=== PATIENT | female | born 1990 | race Caucasian/White ===

== ENCOUNTER 2016-09-21 19:05 | Outpatient (CLI) | payer OTHER ==
[~2016-09-21] VITALS: Ht 152.4 cm; Wt 110.9 kg
[2016-09-21 19:35] VITALS: BP 133/78; PULSE 98; RESP 18; Ht 152.4 cm; Wt 110.9 kg
[2016-09-21] MEDS ORDERED: PREN-93 PO (19:37)
[2016-09-21 20:33] LABS: ADD UMIC NO; UR ASCORBIC ACID 40 mg/dL (NEGATIVE); UR BILIRUBIN (Dip) NEGATIVE (NEGATIVE); UR BLOOD (Dip) NEGATIVE (NEGATIVE); UR CLARITY SLIGHTLY CLOUDY (CLEAR); UR COLOR YELLOW (YELLOW); UR GLUCOSE (Dip) NEGATIVE (NEGATIVE); UR KETONES (Dip) 1+ mg/dL (NEGATIVE); UR LEUKOCYTE ESTERASE (Dip) NEGATIVE Leu/ul (NEGATIVE); UR MUCUS FEW /HPF (NONE SEEN); UR NITRITE (Dip) NEGATIVE (NEGATIVE); UR RBC 1 /HPF (0-5); UR SPECIFIC GRAVITY (Dip) 1.023 (1.003-1.030); UR SQUAMOUS EPITHELIAL CELL FEW /HPF (FEW); UR TOTAL PROTEIN (Dip) NEGATIVE (NEGATIVE); UR UROBILINOGEN (Dip) 1+ mg/dL (NEGATIVE)
--- NOTE | 2016-09-21 22:08 | RADRPT ---
PROCEDURE: US OB biophysical profile. CLINICAL INDICATION: decreased movements, contractions TECHNIQUE: Multiple sonographic images of the pelvis were obtained. The images were reviewed on a PACS workstation. COMPARISON: No prior studies are available for comparison. FINDINGS: There is a single viable intrauterine gestation. Cardiac activity is present with 150 beats per min [place]. There is a vertex presentation. The placenta is posterior. There is no evidence of placental abruption. There is a normal amount of amniotic fluid with an SHAYLA = 15.8 cm. Biophysical profile: movement 2/2 tone 2/2. breathing 2/2 SHAYLA 2/2 Total 09/15 RPTAT: AA . IMPRESSION: Normal biophysical profile. . .Tao Latif MD, MD Date Time Electronically viewed and signed by .Tao Latif MD, MD on 09/21/2016 22:07 .S/
--- NOTE | 2016-09-21 23:54 | TRIAGE ---
OB Triage Datetime Report Generated by CPN: 09/21/2016 23:54 Datetime: 09/21/2016 23:00 Labor Evaluation Frequency: IRREGULAR Monitor Mode: External Duration (sec)2399: 60 Quality: Mild Pattern: Normal: <= 5 Contractions in 10 Minutes Resting Tone [place]: Relaxed Heart Rate FHR Baseline Rate: 135 Monitor Mode: External US FHR Baseline Changes: No Baseline Change Variability: Moderate 6-25 bpm Accelerations: 15X15 Decelerations: None Category: Category I Datetime: 09/21/2016 21:55 Comments: PT TURNED TO LT LATERAL POSITION FHT NOT TRACING Datetime: 09/21/2016 21:33 Labor Evaluation Frequency: IRREGULAR Monitor Mode: External Duration (sec)2399: 100 Quality: Mild Pattern: Normal: <= 5 Contractions in 10 Minutes Resting Tone [place]: Relaxed Heart Rate FHR Baseline Rate: 135 Monitor Mode: External US FHR Baseline Changes: No Baseline Change Variability: Moderate 6-25 bpm Accelerations: 15X15 Decelerations: None Category: Category I Datetime: 09/21/2016 21:00 Labor Evaluation Frequency: IRREGULAR Monitor Mode: External Duration (sec)2399: 30-120 Quality: Mild Pattern: Normal: <= 5 Contractions in 10 Minutes Resting Tone [place]: Relaxed Heart Rate FHR Baseline Rate: 135 Monitor Mode: External US FHR Baseline Changes: No Baseline Change Variability: Moderate 6-25 bpm Accelerations: 15X15 Decelerations: None Category: Category I Datetime: 09/21/2016 20:00 Labor Evaluation Frequency: IRREGULAR Monitor Mode: External Duration (sec)2399: 80 Quality: Mild Pattern: Normal: <= 5 Contractions in 10 Minutes Resting Tone [place]: Relaxed Heart Rate FHR Baseline Rate: 145 Monitor Mode: External US FHR Baseline Changes: No Baseline Change Variability: Moderate 6-25 bpm Accelerations: 15X15 Decelerations: None Category: Category I Datetime: 09/21/2016 19:43 Vaginal Exam Dilatation (cms): 0.0 Effacement (%): 0 Station: -3 Exam By: A CHATA RN Datetime: 09/21/2016 19:25 Stage of : OB Triage Time of Arrival: 09/21/2016 18:54 EGA: 37.3 Arrived By: Wheelchair Arrived From: Home Chief Complaint: ADOMINAL PAIN VAGINAL PRESSURE Movement: Present Time Contractions Began: 09/21/2016 09:00 Rupture of Membranes: Denies Vaginal Bleeding: None Vaginal Discharge: Denies Recent Sexual Intercouse: Denies Abdominal Trauma: Not Applicable Patient Complaints: None Time Provider Notified: 09/21/2016 20:40 Provider Notified: DR ADAM Initial Plan: CALL ASHWIN MCDOWELL Maternal Assessment Level of Consciousness: Fully Conscious DTR's/Clonus: DTRs 2+; No Clonus Headache: Denies Blurred Vision: No Respiratory Effort: Unlabored; Regular Rhythm; Equal Expansion Breath Sounds, Left: Clear and Equal Breath Sounds, Right: Clear and Equal Nausea/Vomiting: Denies RUQ Epigastric Pain: Denies Lower Extremities Edema: None Degree: None Upper Extremities Edema: None Degree: None Facial Edema: None Temperature Route: Oral Fall Risk Assessment History of Falling: (0) No Secondary Diagnosis: (0) No Ambulatory Aid: (0) Bedrest/Nurse Assist IV Therapy: (0) No Gait: (0) Normal/Bedrest/Immobile Mental Status: (0) Oriented to Own Ability Fall Score: 0 Fall Risk Score Definition: No Risk: No action required Monitor Mode: External Monitor Mode: External US Pain Assessment Pain Scale: 7 Pain Presence: Intermittent Pain Type: Pressure Pain Location: Abdomen; Back Datetime: 09/21/2016 19:12 Comments: LOSS OF CONTACT
--- NOTE | 2016-09-22 04:52 | PN ---
Triage Information Date/Time Reason for visit: pelvic pressure, occasional ucs Weeks of Gestation 37 3/7 weeks /Para Hypertention: none Objective Vital Signs Date Time Temp Pulse Resp B/P Pulse Ox O2 Delivery O2 Flow Rate FiO2 09/21/16 19:35 98.2 98 18 133/78 Room Air Heart Rate: 140's Contractions: >10 Minutes Apart Results/Medications Results 24 hrs Laboratory Tests Test 09/21/16 20:05 Urine Color YELLOW Urine Clarity SLIGHTLY CLOUDY A Urine pH 5.0 Urine Specific [place] 1.023 Urine Ketones 1+ H Urine Nitrite NEGATIVE Urine Bilirubin NEGATIVE Urine Urobilinogen 1+ H Urine Leukocyte Esterase NEGATIVE Urine Microscopic RBC 1 Urine Microscopic WBC 1 Urine Squamous Epithelial Cells FEW Urine Mucus FEW A Urine Hemoglobin NEGATIVE Urine Glucose NEGATIVE Urine Total Protein NEGATIVE Assessment/Plan - FHR: No sign of metabolic acidosis- Category I - Continuous EFM, toco - Contractions: Occasional - Reactive NST. USperformed with nml SHAYLA - Symptoms and sign of labor, preeclampsia, kick count discussed with patient, she voiced understanding. All of her questions answered. - Patient was discharged home in stable condition with the appropriate discharge instructions provided. I would like patient to have close follow-up with her primary physician or outpatient clinic in 1-2 days or return to the ER for worsening symptoms or any other urgent concerns. ALBA ADAM Sep 22, 2016 04:52
== END 2016-09-21 23:10 | disposition home or self-care (01) ==
LOC: OBT 19:05 → L-D 19:05 → OBT 23:10
PROVIDERS: ATTEND Obstetrics & Gynecology
DX: O62.9 Abnormality of forces of labor, unspecified (principal); Z3A.37 37 weeks gestation of pregnancy; O26.893 Other specified pregnancy related conditions, third trimester; Z3A.34 34 weeks gestation of pregnancy; R10.2 Pelvic and perineal pain
CPT/HCPCS: 76818; 81001; 87086; Z7500; 81003; G0463

== ENCOUNTER 2016-10-02 09:48 | Inpatient (IN) | payer OTHER ==
[~2016-10-02] VITALS: Ht 152.4 cm; Wt 108.6 kg
[~2016-10-02 09:48] MED LIST: EPHEDrine SULFATE 50 MG/5 ML SYG ONE; PREN-93 PO
[2016-10-02 10:06] VITALS: Ht 152.4 cm; Wt 108.6 kg
[2016-10-02] MEDS ORDERED: METHYLERGONOVINE 0.2 MG INJ IM PRN ×2 (10:30→17:30)
[2016-10-02] MEDS ORDERED: CEFAZOLIN 2 GM/50 ML (PMX) 50 ML IV SCH (10:30)
[2016-10-02] MEDS ORDERED: CARBOPROST 250 MCG INJ IM PRN ×2 (10:30→17:30)
[2016-10-02] MEDS ORDERED: OXYTOCIN 30 UNITS/LR 500 ML IV PRN ×2 (10:30→17:30)
[2016-10-02] MEDS ORDERED: MISOPROSTOL 200 MCG TAB PR PRN ×2 (10:30→17:30)
[2016-10-02 10:43] LABS: ABNORMAL IP MESSAGE 1; BASOPHILS % 0.3 % (0.0-2.0); EOSINOPHILS # 0.1 10^3/ul (0.0-0.5); EOSINOPHILS % 0.8 % (0.0-7.0); HEMATOCRIT 34.7 % (37.0-47.0); LYMPHOCYTES # 1.8 10^3/ul (0.8-2.9); LYMPHOCYTES % 22.4 % (15.0-51.0); MEAN CORPUSCULAR HEMOGLOBIN 22.5 pg (29.0-33.0); MEAN CORPUSCULAR HGB CONC 31.7 g/dl (32.0-37.0); MONOCYTE # 0.4 10^3/ul (0.3-0.9); MONOCYTES % 4.7 % (0.0-11.0); NEUTROPHILS % 71.5 % (39.0-77.0); PLATELET COUNT 177 10^3/UL (140-415); RED BLOOD COUNT 4.89 10^6/ul (4.20-5.40); RED CELL DISTRIBUTION WIDTH 16.9 % (11.5-14.5); WHITE BLOOD COUNT 7.8 10^3/ul (4.8-10.8)
[2016-10-02] MEDS: LACTATED RINGER'S 1,000 ML IV SCH ×2 (10:44→18:01)
[2016-10-02 10:48] LABS: POSITIVE DIFF @See below
[2016-10-02 10:49] LABS: INR 0.93; PROTIME 12.5 Sec (12.2-14.2)
[2016-10-02] MEDS ORDERED: CITRIC ACID/NA CITRATE 30 ML CUP PO ONE (12:00)
[2016-10-02] MEDS ORDERED: morphine SULFATE/PF (10 MG/10 ML) INJ ONE (12:05)
[2016-10-02] MEDS ORDERED: ONDANSETRON 4 MG INJ ONE (12:05)
[2016-10-02] MEDS ORDERED: KETOROLAC 30 MG INJ ONE (12:05)
[2016-10-02] MEDS ORDERED: METOCLOPRAMIDE 10 MG INJ ONE (12:05)
--- NOTE | 2016-10-02 13:11 | HP ---
Date/Time of Note Date/Time of Note DATE: 10/02/16 TIME: 13:02 OB - History Hx of Present Free Text/Dictation 25 years old female T3 PT 0 SAB 1 IAB 0 L3 Admitted to [facility] at 39 weeks gestation with a history of 3 previous section undergoing repeat for the fourth time patient has been under the care of [facility] her was not complicated with gestational diabetes -induced hypertension or any other serious surgical or medical condition [employer] history [place] at age 10 history of total of 5 one a spontaneous and 3 previous section and also gallbladder surgery 2013 Allergies denies allergy to any known medication Social habits denies a smoking or drinking or using illicit drug Review of system within normal Physical examination 5 feet 244 pounds weight gain during the 20 pounds blood pressure 132/73 pulse 74 respiration 18 and temperature 98 Head ears nose and throat negative Neck supple no thyromegaly Lungs clear to P&A Heart normal sinus rhythm no murmur Abdomen fundal height 37 cm from symphysis pubis heart rate category 1 Pelvic examination deferred Extremities no edema no varicosities Impression intrauterine at 39 weeks gestation, 3 previous , undergoing a repeat for the fourth time patient is aware of the complication of the surgery including bowel bladder injury infection hemorrhage and hematoma also complication from the anesthesia old this issues discussed with the patient or question answered is willing to go ahead with the procedure Chief Complaint: 39 weeks history of 3 previous sick Estimated Due Date: Oct 09, 2016 : 5 Para: 3 Spontaneous : 1 Care: Good Care Ultrasounds: Normal mid trimester US Obstetrical Complications: None Medical Complications: None Past Family/Social History * Past Medical, Surgical, Family and Obstetric Histories reviewed from chart. Rubella: immune RPR/VDRL: Negative GBS Status: Negative HBsAG: Negative OB Admission Exam Physical Exam HEENT: WNL Heart: Rhythm Normal Lungs: Clear, Equal Abdomen: WNL Extremities: Normal Cervical Dilatation: None Heart Rate: 120's Accelerations: Accelerations Present Decelerations: No Decelerations Varibility: Moderate Intensity: Mild Last 72 hours Lab Results CBC & BMP 10/02/16 10:15 MAN CUEVAS MD Oct 02, 2016 13:11
[2016-10-02] MEDS ORDERED: EPINEPHrine 0.1 MG/ML SYG ONE (13:14)
[2016-10-02] MEDS ORDERED: OXYTOCIN 30 UNITS/LR 500 ML IV ONE (13:57)
[2016-10-02] MEDS ORDERED: NALOXONE (0.4 MG/ML) INJ IV PRN (14:30)
[2016-10-02] MEDS ORDERED: ONDANSETRON 4 MG INJ IV PRN ×2 (14:30)
[2016-10-02] MEDS ORDERED: KETOROLAC 30 MG INJ IV PRN (14:30)
[2016-10-02] MEDS ORDERED: METOCLOPRAMIDE 10 MG INJ IV PRN (14:30)
[2016-10-02] MEDS ORDERED: DIPHENHYDRAMINE 50 MG INJ IV PRN ×2 (14:30)
[2016-10-02] MEDS ORDERED: HYDROmorphONE (0.2 MG/ML) 10ML SYG IV PRN ×3 (14:30)
[2016-10-02] MEDS ORDERED: HYDROmorphONE 1 MG/ML SYG IV PRN ×3 (14:30)
[2016-10-02] MEDS ORDERED: MEPERIDINE 25 MG INJ IV PRN (14:30)
--- NOTE | 2016-10-02 14:41 | OPR ---
Operative Report Planned Procedure Free Text/Dictation 25 years history of 3 previous section 39 weeks admitted for repeat for the fourth time complication of the surgery including but not limited to bowel bladder injury infection hemorrhage wound hematoma wound infection especially with a history of 3 previous possibility of blood transfusion has been discussed with the patient and explained all her questions answered Procedure date Oct 02, 2016 Procedure(s) Repeat section extensive adhesio lysis Performed by: MAN CUEVAS MD Assisting provider: IVORY GAMBOA Anesthesiologist: GEORGETTE MARROQUIN MD Pre-procedure diagnosis 39 weeks history of 3 previous section admitted for repeat C- section Anesthesia Type: spinal Procedure Description Under satisfactory spinal [] anesthesia, the patient was prepped and draped and placed in a supine position, tilted to the left. Pfannenstiel incision was made , carried through the subcutaneous tissue. Bleeders brought under control with electrocautery. Fascia incised to the length of the incision. Rectus muscles from the fascia, divided midline. Peritoneum exposed, entered through a transverse incision upon entry to the abdominal cavity it was noted the anterior uterine wall is dense adhesions to the anterior abdominal wall required extensive dissection to separate the uterus from the anterior abdominal wall and have access to lower segment of the uterus. Exploration of abdomen revealed gravid uterus at term no axis to the ovaries and fallopian tube , . Bladder flap was developed. Transverse incision was made in the lower segment of the uterus which was extremely thinned out. Amniotic sac ruptured. [ Clear] amniotic fluid noted. Light baby girl was delivered from unengaged bed [ ] Nasal oropharyngeal suction was performed. baby handed to the team for immediate attention. Patient received 20 units of Pitocin through the IV infusion placenta was delivered manually intact. Uterine cavity cleaned with wet sponge and drainage established. Uterus closed in 2 layers using [Monocryl # 1] in continuous fashion, lower segment of the uterus and uterine incision line was covered with Surgicel and Intercede Peritoneal cavity irrigated with warm saline. Sponge, needle and instrument count reported to be correct. Abdominal peritoneum closed with [2-0 chromic catgut] continuously. Rectus muscle approximated with 2-0 chromic catgut Fascia closed with #1 PDS subcutaneous tissue approximated with few interrupted 2-0 chromic catgut skin closed with N sorb. Estimated blood loss [6-700 cc]. Urine bag contained [200]mL of clear urine patient tolerated procedure well transferred to recovery room in good condition Post-Procedure Findings: Live Baby girl 9 and 9 Specimen removed: No Complications: None Pt Condition post procedure: stable Physician Certification I, the undersigned physician, hereby certify that I have discussed the procedure described in this consent form with this patient (or the patient's legal solar sales representative and assessor), including: * The risk and benefits of the procedure; * Any adverse reactions that may reasonably be expected to occur; * Any alternative efficacious methods of treatment which may be medically viable ; * The potential problems that may occur during recuperation; * Potential for blood transfusion and associated risks/benefits; and * Any research or economic interest I may have regarding this treatment. I further certify that the patient/legally responsible person was encouraged to ask question and that all questions were answered. MAN CUEVAS MD Oct 02, 2016 14:38
[2016-10-02] MEDS: OXYTOCIN 30 UNITS/LR 500 ML IV SCH ×4 (15:51→21:18)
[2016-10-02 17:19] VITALS: BP 113/74; PULSE 62; RESP 20
[2016-10-02] MEDS ORDERED: OXYCODONE/ACETAMINOPHEN (5/325) TAB PO PRN (17:30)
[2016-10-02] MEDS ORDERED: LANOLIN 7 GM TUBE TOP PRN (17:30)
[2016-10-02] MEDS ORDERED: HYDROCODONE/APAP (5/325) TAB PO PRN ×2 (17:30)
[2016-10-02] MEDS: SENNA/DOCUSATE NA (8.6MG/50MG) TAB PO SCH (21:00)
[2016-10-02] MEDS ORDERED: CEFAZOLIN 1 GM/50 ML (PMX) 50 ML IVPB SCH (21:00)
[2016-10-03] VITALS: BP 108/71; PULSE 73; RESP 18
[2016-10-03] MEDS: OXYTOCIN 30 UNITS/LR 500 ML IV SCH (01:09)
[2016-10-03] MEDS: LACTATED RINGER'S 1,000 ML IV SCH ×2 (02:01→09:17)
[2016-10-03 04:00] VITALS: BP 92/56; PULSE 84; RESP 16
[2016-10-03] MEDS: IBUPROFEN 600 MG TAB PO SCH ×3 (06:00→17:48)
[2016-10-03 07:29] LABS: ABNORMAL IP MESSAGE 1; BASOPHILS % 0.2 % (0.0-2.0); EOSINOPHILS % 0.1 % (0.0-7.0); HEMATOCRIT 28.5 % (37.0-47.0); HEMOGLOBIN 8.7 g/dl (12.0-16.0); LYMPHOCYTES # 1.5 10^3/ul (0.8-2.9); LYMPHOCYTES % 17.2 % (15.0-51.0); MEAN CORPUSCULAR HGB CONC 30.5 g/dl (32.0-37.0); MEAN CORPUSCULAR VOLUME 72.2 fl (82.0-101.0); MEAN PLATELET VOLUME 12.9 fl (7.4-10.4); MONOCYTE # 0.5 10^3/ul (0.3-0.9); MONOCYTES % 5.2 % (0.0-11.0); NEUTROPHILS % 77.2 % (39.0-77.0); PLATELET COUNT 143 10^3/UL (140-415); RED BLOOD COUNT 3.95 10^6/ul (4.20-5.40); RED CELL DISTRIBUTION WIDTH 17.1 % (11.5-14.5); WHITE BLOOD COUNT 8.9 10^3/ul (4.8-10.8)
[2016-10-03 08:22] LABS: POSITIVE DIFF @See below
[2016-10-03 08:40] VITALS: BP 101/57; PULSE 77; RESP 20
[2016-10-03] MEDS: SENNA/DOCUSATE NA (8.6MG/50MG) TAB PO SCH ×2 (09:17→21:03)
--- NOTE | 2016-10-03 11:45 | PN ---
Date/Time of Note Date/Time of Note DATE: 10/03/16 TIME: 11:41 OB Subjective Subjective Subjective p0st c section day 1 afebrile vss abdomen soft bs present lochia nl ext normal ambulation encouraged Laboratory Tests Test 10/03/16 06:05 White Blood Count 8.910^3/ul Red Blood Count 3.9510^6/ul Hemoglobin 8.7g/dl Hematocrit 28.5% Mean Corpuscular Volume 72.2fl Mean Corpuscular Hemoglobin 22.0pg Mean Corpuscular Hemoglobin Concent 30.5g/dl Red Cell Distribution Width 17.1% Platelet Count 89479^3/UL Mean Platelet Volume 12.9fl Neutrophils % 77.2% Lymphocytes % 17.2% Monocytes % 5.2% Eosinophils % 0.1% Basophils % 0.2% Nucleated Red Blood Cells % 0.0/100WBC Neutrophils # (Manual) 6.910^3/ul Lymphocytes # 1.510^3/ul Monocytes # 0.510^3/ul Eosinophils # 0.010^3/ul Basophils # 0.010^3/ul Nucleated Red Blood Cells # 0.010^3/ul Current Medications Medications (Trade) Dose Ordered Sig/Neris Route PRN Reason Start Time Stop Time Status Last Admin Dose Admin Lactated Ringer's 1,000 ml @ 125 mls/hr Q8H IV 10/02/16 10:01 10/03/16 09:17 Cefazolin Sodium/ Dextrose 50 ml @ 100 mls/hr ONCE IV 10/02/16 10:30 10/02/16 17:11 DC Oxytocin/Lactated Ringer's 500 ml @ 125 mls/hr ONCE IV 10/02/16 10:30 10/02/16 17:09 Oxytocin/Lactated Ringer's 500 ml @ 0 mls/hr ONCE PRN IV For Hemorrhage Management 10/02/16 10:30 10/02/16 17:11 DC Methylergonovine Maleate (Methergine) 0.2 mg ONCE PRN IM VAGINAL BLEEDING 10/02/16 10:30 10/02/16 17:11 DC Carboprost Tromethamine (Hemabate) 250 mcg ONCE PRN IM VAGINAL BLEEDING 10/02/16 10:30 10/02/16 17:11 DC Misoprostol (Cytotec) 1,000 mcg ONCE PRN MD VAGINAL BLEEDING 8/25/17 10:30 10/02/16 17:11 DC Citric Acid/ Sodium Citrate (Bicitra) 30 ml PRE-OP ONCE PO 10/02/16 12:00 10/02/16 12:01 DC 10/02/16 12:41 Morphine Sulfate (Duramorph) 10 mg STK-MED ONCE .ROUTE 10/02/16 12:05 10/02/16 12:06 DC Ondansetron HCl (Zofran Inj) 4 mg STK-MED ONCE .ROUTE 10/02/16 12:05 10/02/16 12:06 DC Metoclopramide HCl (Reglan) 10 mg STK-MED ONCE .ROUTE 10/02/16 12:05 10/02/16 12:06 DC Ketorolac Tromethamine (Toradol) 30 mg STK-MED ONCE .ROUTE 10/02/16 12:05 10/02/16 12:06 DC Epinephrine 1 mg 1 mg STK-MED ONCE .ROUTE 10/02/16 13:14 10/02/16 13:15 DC Oxytocin/Lactated Ringer's 500 ml @ ud STK-MED ONCE IV 10/02/16 13:57 10/02/16 13:58 DC Hydromorphone HCl (Dilaudid (Rec)) 0.2 mg PACU ORDER PRN IV MILD PAIN LEVEL 1-3 10/02/16 14:30 10/03/16 03:45 DC Hydromorphone HCl (Dilaudid (Rec)) 0.4 mg PACU ORDER PRN IV MODERATE PAIN LEVEL 4-6 10/02/16 14:30 10/03/16 03:45 DC Hydromorphone HCl (Dilaudid (Rec)) 0.6 mg PACU ORDER PRN IV SEVERE PAIN LEVEL 7-10 10/02/16 14:30 10/03/16 03:45 DC Ondansetron HCl (Zofran Inj) 4 mg PACU ORDER PRN IV NAUSEA AND/OR VOMITING 10/02/16 14:30 10/03/16 03:45 DC 10/02/16 17:44 Metoclopramide HCl (Reglan) 10 mg PACU ORDER PRN IV NAUSEA AND/OR VOMITING 10/02/16 14:30 10/03/16 03:45 DC 10/02/16 14:37 Meperidine HCl (Demerol) 25 mg PACU ORDER PRN IV POST-OP RIGORS 10/02/16 14:30 10/03/16 03:45 DC Diphenhydramine HCl (Benadryl) 25 mg PACU ORDER PRN IV PRURITUS 10/02/16 14:30 10/03/16 03:45 DC 10/02/16 15:17 Naloxone HCl (Narcan) 0.1 mg Q2M PRN IV FOR RESP RATE 8 OR LESS 10/02/16 14:30 10/03/16 14:29 Ketorolac Tromethamine (Toradol) 30 mg Q6H PRN IV PAIN 10/02/16 14:30 10/03/16 14:00 10/03/16 08:40 Hydromorphone HCl (Dilaudid) 1 mg Q3H PRN IV BREAKTHROUGH PAIN 10/02/16 14:30 10/03/16 14:00 Hydromorphone HCl (Dilaudid) 0.2 mg Q3H PRN IV PAIN LEVEL 1-5 10/02/16 14:30 10/03/16 14:00 Hydromorphone HCl (Dilaudid) 0.4 mg Q3H PRN IV PAIN LEVEL 6-10 10/02/16 14:30 10/03/16 14:00 Diphenhydramine HCl (Benadryl) 25 mg Q6H PRN IV ITCHING 10/02/16 14:30 10/03/16 14:00 Ondansetron HCl (Zofran Inj) 4 mg Q6H PRN IV NAUSEA AND/OR VOMITING 10/02/16 14:30 10/03/16 14:00 Acetaminophen/ Hydrocodone Bitart ([place] (5/325)) 1 tab Q4H PRN PO PAIN LEVEL 4-6 10/02/16 17:30 Acetaminophen/ Hydrocodone Bitart ([place] (5/325)) 2 tab Q4H PRN PO PAIN LEVEL 7-10 10/02/16 17:30 Oxycodone/ Acetaminophen (Percocet (5/ 325)) 1 tab Q4H PRN PO PAIN LEVEL 4-6 10/02/16 17:30 Oxycodone/ Acetaminophen (Percocet (5/ 325)) 2 tab Q4H PRN PO PAIN LEVEL 7-10 10/02/16 17:30 Ibuprofen (Motrin) 600 mg Q6 PO 10/03/16 06:00 Simethicone (Mylicon) 160 mg Q8H PRN PO DISTENSION/GAS/BLOATING 10/02/16 17:30 Senna/Docusate Sodium (Senokot-S) 1 tab BID PO 10/02/16 21:00 10/03/16 09:17 Lanolin ([id number]-V-Rjukvx) 1 applic BEDSIDE MEDICATION PRN TOP BEDSIDE FOR [place] TO NIPPLES 10/02/16 17:30 Diphtheria/ Tetanus/Acell Pertussis 0.5 ml 0.5 ml ONCE ONCE IM* 10/05/16 09:00 10/05/16 09:01 Oxytocin/Lactated Ringer's 500 ml @ 0 mls/hr ONCE PRN IV For Hemorrhage Management 10/02/16 17:30 Methylergonovine Maleate (Methergine) 0.2 mg ONCE PRN IM VAGINAL BLEEDING 10/02/16 17:30 Carboprost Tromethamine (Hemabate) 250 mcg ONCE PRN IM VAGINAL BLEEDING 10/02/16 17:30 Misoprostol 1000 mcg 1,000 mcg ONCE PRN MD VAGINAL BLEEDING 10/02/16 17:30 Cefazolin Sodium 50 ml @ 100 mls/hr ONCE IVPB 10/02/16 21:00 10/02/16 21:29 DC 10/02/16 21:17 Oxytocin/Lactated Ringer's 500 ml @ 125 mls/hr Q4H IV 10/02/16 17:09 10/02/16 21:18 MAN CUEVAS MD Oct 03, 2016 11:44
[2016-10-03 12:37] VITALS: BP 96/64; PULSE 73; RESP 18
[2016-10-03] MEDS: OXYCODONE/ACETAMINOPHEN (5/325) TAB PO PRN ×2 (14:21→18:28)
[2016-10-03 19:30] VITALS: BP 109/80; PULSE 76; RESP 18
[2016-10-04] MEDS: IBUPROFEN 600 MG TAB PO SCH ×3 (00:10→12:18)
[2016-10-04] MEDS: OXYCODONE/ACETAMINOPHEN (5/325) TAB PO PRN (03:10)
[2016-10-04 08:00] VITALS: BP 120/66; PULSE 59; RESP 18
[2016-10-04] MEDS: SENNA/DOCUSATE NA (8.6MG/50MG) TAB PO SCH (09:17)
--- NOTE | 2016-10-04 10:03 | PN ---
Date/Time of Note Date/Time of Note DATE: 10/03/16 TIME: 10:01 Anesthesia note: A 26 year female s/p spinal duramorph pod#1 is doing well. no pain, N/V, itching , back pain, headache. back is clean . care per surgery Assessment/Plan VTE Prophylaxis VTE Prophylaxis Intervention: ambulation Lines/Catheters IV Catheter Type (from Nrs): Saline Lock Exam/Review of Systems Vital Signs Vitals Vital Signs Date Time Temp Pulse Resp B/P Pulse Ox O2 Delivery O2 Flow Rate FiO2 10/03/16 19:30 98.0 76 18 109/80 Room Air Intake and Output 10/03/16 10/03/16 10/04/16 15:00 23:00 07:00 Intake Total 750 ml Output Total 800 ml 300 ml Balance -50 ml -300 ml Results Result Diagram: 10/03/16 0605 Medications Medications Current Medications Lactated Ringer's 1,000 ml @ 125 mls/hr Q8H IV Last administered on 10/03/16 09:17; Admin Dose 125 MLS/HR; Start 10/02/16 at 10:01 Oxytocin/Lactated Ringer's 500 ml @ 125 mls/hr ONCE IV Last administered on 17:09; Admin Dose 125 MLS/HR; Start 10/02/16 at 10:30 Acetaminophen/ Hydrocodone Bitart ([place] (5/325)) 1 tab Q4H PRN PO PAIN LEVEL 4 -6; Start 10/02/16 at 17:30 Acetaminophen/ Hydrocodone Bitart ([place] (5/325)) 2 tab Q4H PRN PO PAIN LEVEL 7 -10; Start 10/02/16 at 17:30 Oxycodone/ Acetaminophen (Percocet (5/ 325)) 1 tab Q4H PRN PO PAIN LEVEL 4-6; Start 10/02/16 at 17:30 Oxycodone/ Acetaminophen (Percocet (5/ 325)) 2 tab Q4H PRN PO PAIN LEVEL 7-10 Last administered on 10/04/16 03:10; Admin Dose 2 TAB; Start 10/02/16 at 17:30 Ibuprofen (Motrin) 600 mg Q6 PO Last administered on 10/04/16 06:06; Admin Dose 600 MG; Start 10/03/16 at 06:00 Simethicone (Mylicon) 160 mg Q8H PRN PO DISTENSION/GAS/BLOATING; Start at 17:30 Senna/Docusate Sodium (Senokot-S) 1 tab BID PO Last administered on 10/04/16 09:17; Admin Dose 1 TAB; Start 10/02/16 at 21:00 Diphtheria/ Tetanus/Acell Pertussis 0.5 ml 0.5 ml ONCE ONCE IM* ; Start at 09:00; Stop 10/05/16 at 09:01 Oxytocin/Lactated Ringer's 500 ml @ 0 mls/hr ONCE PRN IV For Hemorrhage Management; Start 10/02/16 at 17:30 Methylergonovine Maleate (Methergine) 0.2 mg ONCE PRN IM VAGINAL BLEEDING; Start 10/02/16 at 17:30 Carboprost Tromethamine (Hemabate) 250 mcg ONCE PRN IM VAGINAL BLEEDING; Start 10/02/16 at 17:30 Misoprostol 1000 mcg 1,000 mcg ONCE PRN [place] VAGINAL BLEEDING; Start 10/02/16 at 17:30 Oxytocin/Lactated Ringer's 500 ml @ 125 mls/hr Q4H IV Last administered on 21:18; Admin Dose 125 MLS/HR; Start 10/02/16 at 17:09 GEORGETTE MARROQUIN MD Oct 04, 2016 10:03
--- NOTE | 2016-10-04 12:35 | DS ---
Date/Time of Note Date/Time of Note DATE: 10/04/16 TIME: 12:33 Obstetrical Discharge Record Final Diagnosis Final Diagnosis: Term delivered Other Final Diagnosis status post rpt c/s anemia at 8.7- pt asymptomatic with stable vitals dc home Section Section: Repeat Condition on Discharge Physical Assessment Voiding: Yes Bowel Movement: Yes Breast: Soft, non-tender Fundus: Firm Abdomen and Incision: CDI Calf Tenderness: No Patient Condition: Stable DANDY GARCIA MD Oct 04, 2016 12:35
[2016-10-05] MEDS ORDERED: DIPHTH/TET/ACEL PERTUSS (ADULT) 0.5 ML VIAL IM* ONE (09:00)
== END 2016-10-04 16:20 | disposition home or self-care (01) | DRG 765 ==
LOC: L-D 09:48 → PP1 17:03
PROVIDERS: ADMIT Obstetrics & Gynecology; ATTEND Obstetrics & Gynecology
PROC: 3E033VJ Introduction of Other Hormone into Peripheral Vein, Percutaneous Approach (ICD-10-PCS; 2016-10-02)
PROC: 10D00Z1 Extraction of Products of Conception, Low, Open Approach (ICD-10-PCS; principal; 2016-10-02 12:30)
DX: O34.211 Maternal care for low transverse scar from previous cesarean delivery (principal); Z68.42 Body mass index [BMI] 45.0-49.9, adult; O90.81 Anemia of the puerperium; O99.214 Obesity complicating childbirth; E66.01 Morbid (severe) obesity due to excess calories; Z3A.39 39 weeks gestation of pregnancy; Z37.0 Single live birth
CPT/HCPCS: 85025; 85610; 85730; 86592; 86850; 86900; 86901; 86920; 87340; 90715; 99464; J0171; J0690; J1200; J1885; J2274; J2405; J2590; J2765; J7120